=== PATIENT | male | born 1950 | race Caucasian/White ===

== ENCOUNTER 2021-08-05 22:59 | Emergency (ER) | payer BC, SELFPAY ==
[2021-08-05 23:06] VITALS: BP 166/73; PULSE 74; RESP 16; TEMP 36.5; O2SAT 98; BMI 34.2
[2021-08-05 23:22] VITALS: PULSE 73; RESP 18; O2SAT 98
--- NOTE | 2021-08-05 23:27 | ED_ITS ---
HPI - Neuro Symptoms/Deficit General Chief Complaint: Neuro Symptoms/Deficit Stated Complaint: Numbness to thumb and finger Time Seen by Provider: 08/05/21 23:17 Source: patient Mode of arrival: EMS Limitations: no limitations History of Present Illness HPI Narrative: Patient is a 71-year-old male who is here for evaluation for he describes as numbness to his right thumb right index finger and right middle finger. Patient states he noticed the onset of symptoms when he tried to stand up after sitting for a period of time on his tablet. He reports no other associated symptoms to include headache or vision changes or chest pain or shortness of breath or palpitations or numbness or tingling anywhere else in his body. He has never had heart attack before. Has never had a stroke before. Never had a TIA be fore. He states that his symptoms have actually improved somewhat from the onset he is still feeling some numbness and tingling in his thumb index and ring finger. On Anticoagulants: No Related Data Allergies Allergy/AdvReac Type Severity Reaction Status Date / Time Penicillins Allergy Verified 08/05/21 23:15 Review of Systems Review of Systems ROS Unobtainable: All systems reviewed & are unremarkable except as noted in HPI and below Hematologic/Lymphatic On Anticoagulants: No Patient History Social History Smoking Status: Never smoker Smoking Status: Never smoker alcohol intake frequency: a few times a month Substance Use Type: does not use Exam Initial Vital Signs Initial Vital Signs: Vital Signs Temperature 97.7 F 08/05/21 23:06 Pulse Rate 74 08/05/21 23:06 Respiratory Rate 16 08/05/21 23:06 Blood Pressure 166/73 H 08/05/21 23:06 Pulse Oximetry 98 08/05/21 23:06 HENMT Head: normal to inspection and normocephalic Eyes General: Yes appearance normal, both eyes and all related structures Resp Effort & Inspection: normal respiratory effort Auscultation: clear to auscultation bilaterally Cardio Rate: regular rate Rhythm: regular rhythm GI Inspection: normal to inspection Skin General: no rashes or lesions noted Neuro Cranial Nerves: CN's II-XI intact bilaterally Cognition: normal cognition Speech: speech normal Motor: muscle tone normal throughout Other: Patient reports decreased sensation to light touch circumferentially of his right thumb from the IP joint distal. Also reports decreased sensation to light touch on the pads of his right index finger and right ring finger. The rest of his index and ring finger he reports no sensation differences. The rest of his right hand neurologic exam is unremarkable. No changes in sensation to his forearm or to his shoulder. Extrem General: normal to inspection and capillary refill normal Psych Appearance: grossly normal and well kempt Scores GCS [place] coma scale eye opening: Spontaneous [place] coma scale verbal response: Orientated [place] coma scale motor response: Obey commands [place] coma scale total score: 15 Course Orders Ordered: ED Orders 08/05/21 23:28 EKG-12 Lead Stat 08/05/21 23:49 Basic Metabolic Panel Stat Complete Blood Count AUTO DIFF Stat Vital Signs Vital signs: Vital Signs - 8 hr 08/05/21 23:06 08/05/21 23:22 08/05/21 23:30 Temperature 97.7 F Pulse Rate 74 73 74 Respiratory Rate 16 18 21 Blood Pressure 166/73 H Pulse Oximetry 98 98 94 08/05/21 23:32 08/06/21 00:00 08/06/21 00:20 Temperature Pulse Rate 72 68 70 Respiratory Rate 12 14 17 Blood Pressure 129/67 124/68 133/67 Pulse Oximetry 97 94 94 MDM - Neuro Symptoms/Deficit Lab Data Attestation: I reviewed the patient's lab results. Result diagrams: 08/05/21 23:49 08/05/21 23:49 Labs: Lab Results 08/05/21 08/05/21 Range/Units 23:49 23:49 WBC 9.0 (4.5-11.0) X10^3/uL RBC 4.61 (4.5-5.9) X10^6/uL Hgb 14.5 (13.5-17.5) g/dL Hct 42.5 (41-53) % MCV 92.2 (80-100) fL MCH 31.4 (26-34) PG MCHC 34.0 (30-36) % RDW 13.7 (11.6-14.8) % Plt Count 123 L (150-400) X10^3/uL Neut % (Auto) 67.6 (50-75) % Lymph % (Auto) 21.7 L (25-40) % [place] % (Auto) 8.2 (3-14) % Eos % (Auto) 1.9 L (2-4) % Baso % (Auto) 0.6 (0-2) % Neut # (Auto) 6100 (4297-9339) /uL Lymph # (Auto) 2000 (6564-1205) /uL [place] # (Auto) 700 (0-900) /uL Eos # (Auto) 200 (0-450) /uL Baso # (Auto) 100 (0-100) /uL Sodium 141 (137-145) mmol/L Potassium 4.5 (3.4-5.1) mmol/L Chloride 108 H (98-107) mmol/L Carbon Dioxide 25 (22-32) mmol/L BUN 22 H (9-20) mg/dL Creatinine 1.52 H (0.66-1.25) mg/dL Estimated GFR 49 L (>60) mL/min BUN/Creatinine Ratio 14.5 (6-22) Glucose 138 H (80-110) mg/dL Calcium 9.4 (8.4-10.2) mg/dL ECG Data Attestation: I personally reviewed and interpreted this ECG as follows: Interpretation: Sinus rhythm Ventricular rate is 69 Normal axis Normal QRS Normal QTC No ST T wave changes MDM Narrative Medical decision making narrative: Patient's only neurologic findings are subjective decreased sensation to light touch in his right thumb index and middle finger. He has no other findings that are consistent with carpal tunnel. No other findings that are consistent with cervical radiculopathy. I have low suspicion for CVA. Low suspicion for TIA. He has no skin changes over the area. Electrolytes unremarkable. EKG is unremarkable. The distribution of his symptoms do follow somewhat the median nerve distribution however it is really just the very distal aspects of this nerve where he is describing his symptoms. I do feel that we could hold on any radiologic studies has once again I feel that a CVA is unlikely. I did discuss this with him. Will have him contact his primary provider for follow-up or return to the emergency department if his symptoms worsen or progress. He expressed understanding and agreement Discharge Plan Departure Patient Disposition: Home Clinical Impression: Hand paresthesia Instructions: DI for Numbness/Tingling Activity Restrictions/Additional Instructions: I do recommend that you contact your primary doctor for a follow-up. Return to the emergency department for any new or worsening symptoms. Referrals: Lara Galeas MD [Primary Care Provider] -
[2021-08-05 23:30] VITALS: PULSE 74; RESP 21; O2SAT 94
[2021-08-05 23:32] VITALS: BP 129/67; PULSE 72; RESP 12; O2SAT 97
[2021-08-06] VITALS: BP 124/68; PULSE 68; RESP 14; O2SAT 94
[2021-08-06 00:02] LABS: Add Manual Diff / Slide Review NO; Basophils Absolute Auto 100 /uL (0-100); Basophils Percent Auto 0.6 % (0-2); Eosinophils Absolute Auto 200 /uL (0-450); Eosinophils Percent Auto 1.9 % (2-4); Hematocrit 42.5 % (41-53); Hemoglobin 14.5 g/dL (13.5-17.5); Lymphocytes Absolute Auto 2000 /uL (1100-4500); Lymphocytes Percent Auto 21.7 % (25-40); Mean Corpuscular Hemoglobin 31.4 PG (26-34); Mean Corpuscular Volume 92.2 fL (80-100); Monocytes Absolute Auto 700 /uL (0-900); Monocytes Percent Auto 8.2 % (3-14); Neutrophils Absolute Auto 6100 /uL (1500-7000); Neutrophils Percent Auto 67.6 % (50-75); Platelet Count 123 X10^3/uL (150-400); Red Blood Cell Count 4.61 X10^6/uL (4.5-5.9); Red Cell Distribution Width 13.7 % (11.6-14.8)
[2021-08-06 00:09] LABS: BUN Creatinine Ratio 14.5 (6-22); Blood Urea Nitrogen 22 mg/dL (9-20); Calcium 9.4 mg/dL (8.4-10.2); Carbon Dioxide 25 mmol/L (22-32); Chloride 108 mmol/L (98-107); Estimated Glomerular Filt Rate 49 mL/min (>60); Glucose 138 mg/dL (80-110); HEMOLYSIS < 15 (0-50); Potassium 4.5 mmol/L (3.4-5.1); Sodium 141 mmol/L (137-145)
[2021-08-06 00:20] VITALS: BP 133/67; PULSE 70; RESP 17; O2SAT 94
== END 2021-08-06 00:32 | disposition home or self-care (01) ==
PROVIDERS: Emergency Provider Emergency Medicine; PCP Internal Medicine Geriatric Medicine
DX: R20.2 Paresthesia of skin (principal); R20.0 Anesthesia of skin; R03.0 Elevated blood-pressure reading, without diagnosis of hypertension
CPT/HCPCS: 36415; 80048; 85025; 93005; 93010; 99282; 99283